=== PATIENT | female | born 1975 | race Caucasian/White ===

== ENCOUNTER 2019-08-17 08:26 | Outpatient (CLI) | payer OTHER ==
--- NOTE | 2019-08-17 14:06 | Mammography Report ---
Reason: SCREENING MAMMO Procedure Date: 08/17/2019 Accession Number: [id number] / [id number] Procedure: MGN - Screening Mammo Dig Bilat CPT Code: Final Report FULL RESULT: EXAM: Screening Mammo Dig Bilat DATE: 08/17/2019 8:56 AM CLINICAL HISTORY: Baseline screening. TECHNIQUE: (B) - Bilateral CC and MLO views were obtained. COMPARISON: None PARENCHYMAL PATTERN: (D) - The breasts demonstrate heterogeneously dense fibroglandular parenchyma bilaterally. FINDINGS: Right breast: There are no suspicious masses, calcifications, or areas of distortion. Left breast: Posterior upper outer quadrant slight asymmetric increased density; suggest spot compression and true lateral views with ultrasound if needed. Otherwise negative left breast. IMPRESSION: Incomplete examination. BI-RADS category 0. Left breast. Negative right breast. RECOMMENDATION: (ADDMU) - Additional views using both Mammography and Ultrasound recommended. BI-RADS CATEGORY: (0) - Incomplete Examination - need additional evaluation. STANDARD QUALIFYING STATEMENTS: 1. This examination was not reviewed with the aid of Computer-Aided Detection (CAD). 2. A negative or benign imaging report should not preclude biopsy if clinically suspicious findings are present. 3. Dense breasts may obscure an underlying neoplasm. 4. This examination was reviewed without the aid of 3D breast imaging (tomosynthesis).
== END 2019-08-17 08:27 | disposition home or self-care (01) ==
LOC: DI.N 08:26
PROVIDERS: ATTEND Family Medicine
DX: Z12.31 Encounter for screening mammogram for malignant neoplasm of breast (principal); R92.8 Other abnormal and inconclusive findings on diagnostic imaging of breast
CPT/HCPCS: 77067

== ENCOUNTER 2019-09-07 08:51 | Outpatient (CLI) | payer OTHER ==
--- NOTE | 2019-09-07 10:27 | Mammography Report ---
Reason: ABN MAMMO - SPEC VIEWS LT Procedure Date: 09/07/2019 Accession Number: [id number] / [id number] Procedure: LAURE - Diagnostic Dig LT CPT Code: Final Report FULL RESULT: EXAM: Diagnostic Dig LT DATE: 09/07/2019 9:52 AM CLINICAL HISTORY: Diagnostic mammogram. The patient is recalled from screening for a left breast upper outer quadrant asymmetry. TECHNIQUE: (L) - Left CC, ML, spot MLO and spot CC images are obtained. Focused left breast ultrasound is performed. COMPARISON: 08/17/2019. PARENCHYMAL PATTERN: (D) - The breast(s) demonstrate(s) heterogeneously dense fibroglandular parenchyma. FINDINGS: Spot views demonstrate a angular appearing nodule which measures up to 1 cm on spot views and appears gently lobulated on 3-D images, isodense and well marginated tomographically. Focused breast ultrasound of the left upper outer quadrant at 2:00 11 cm from the nipple demonstrates a hypoechoic angulated appearing septated cyst with increased through transmission, questionably slightly taller than wide with no definite solid soft tissue component, probably benign There are no suspicious masses, calcifications, or areas of distortion. IMPRESSION: Probably Benign. BI-RADS category 3. RECOMMENDATION: (6MOS) - Recommend 6 month follow-up exam. Left upper outer quadrant focused breast ultrasound for stability. BI-RADS CATEGORY: (3) - Probably Benign. STANDARD QUALIFYING STATEMENTS: 1. This examination was not reviewed with the aid of Computer-Aided Detection (CAD). 2. A negative or benign imaging report should not preclude biopsy if clinically suspicious findings are present. 3. Dense breasts may obscure an underlying neoplasm. 4. This examination was reviewed with the aid of 3D breast imaging (tomosynthesis).
== END 2019-09-07 08:52 | disposition home or self-care (01) ==
LOC: DI 08:51
PROVIDERS: ATTEND Family Medicine
DX: R92.8 Other abnormal and inconclusive findings on diagnostic imaging of breast (principal)
CPT/HCPCS: 76642

== ENCOUNTER 2020-05-08 11:48 | Outpatient (CLI) | payer OTHER ==
--- NOTE | 2020-05-12 13:24 | Ultrasound Report ---
LIMITED ULTRASOUND OF LEFT BREAST: 05/08/2020 CLINICAL: 6 month follow-up of cysts. No prior exams were available for comparison. Color flow and real-time ultrasound of the left breast were performed. Rodriges scale images of the vikram l-time examination were reviewed. Redemonstration of the 0.8 cm x 0.4 cm x 0.3 cm irregular cyst in the left breast at 2 o'clock pet sitting ior depth 11 cm from the nipple. This irregular cyst is hypoechoic with no posterior acoustic shadow ing or enhancement. It is parallel to skin surface in orientation. It is more cystic in apearance. Accounting for slight differences in imaging technique, this abnormality is not significantly changed . Color flow imaging demonstrates that there is no vascularity present. IMPRESSION: PROBABLY BENIGN The 0.8 cm x 0.4 cm x 0.3 cm irregular cyst in the left breast resembles a complicated cyst and is pr obably benign. A follow-up mammogram and an ultrasound in 6 months is recommended to demonstrate continued stability . Findings and recommendations were conveyed to the patient during today's visit. This exam was interpreted at Station ID: [id number]. Electronically Signed By: Chip Luu M.D. aty/:05/08/2020 13:15:52 Ultrasound BI-RADS: 3 Probably benign BI-RADS CATEGORY: (3) - 3 Mammo and [place] [id number] 6 month follow-up LATERALITY: (B)
== END 2020-05-08 11:49 | disposition home or self-care (01) ==
LOC: DI 11:48
PROVIDERS: ATTEND Family Medicine
DX: R92.8 Other abnormal and inconclusive findings on diagnostic imaging of breast (principal); N60.02 Solitary cyst of left breast
CPT/HCPCS: 76642

== ENCOUNTER 2020-05-08 11:53 | Outpatient (CLI) | payer OTHER ==
--- NOTE | 2020-05-08 16:32 | XRAY Report ---
Reason: LT SHOULDER PAIN Procedure Date: 05/08/2020 Accession Number: [id number] / [id number] Procedure: XR - Shoulder 3 View LT CPT Code: Final Report FULL RESULT: PROCEDURE: Shoulder 3 View LT INDICATIONS: LT SHOULDER PAIN TECHNIQUE: 3 views of the shoulder were acquired. COMPARISON: None. FINDINGS: Bones: No fractures or dislocations. 1.4 cm focus of sclerosis within the proximal humeral shaft. No associated osseous destruction. Moderate acromioclavicular degenerative narrowing is present. Mild high riding appearance of the humeral head is noted. Visualized ribs appear intact. Soft tissues: No suspicious soft tissue calcifications. IMPRESSION: 1. High riding humeral head which can be seen with rotator cuff pathology. 2. Focus of sclerosis within the humeral shaft as above. This could represent a prominent bone island. However, other etiologies cannot be excluded and is overall nonspecific. If this correlates to area of pain, MRI is recommended for further evaluation. Otherwise, bone scan or 3 month interval x-ray follow-up is recommended. Reviewed by: Lu Finnegan MD on 05/08/2020 4:31 PM PDT Approved by: Lu Finnegan MD on 05/08/2020 4:31 PM PDT Station ID: [id number]
== END 2020-05-08 11:54 | disposition home or self-care (01) ==
LOC: DI 11:53
PROVIDERS: ATTEND Physician Assistant
DX: M25.512 Pain in left shoulder (principal); N60.02 Solitary cyst of left breast; R92.8 Other abnormal and inconclusive findings on diagnostic imaging of breast
CPT/HCPCS: 76642

== ENCOUNTER 2020-12-09 08:18 | Outpatient (CLI) | payer OTHER ==
--- NOTE | 2020-12-09 13:56 | Mammography Report ---
BILATERAL DIGITAL DIAGNOSTIC MAMMOGRAM 3D/2D: 12/09/2020 CLINICAL: 6 month follow-up of cysts. Comparison is made to exams dated: 09/07/2019 ultrasound, 09/07/2019 mammogram, and 08/17/2019 mammog [facility]. The tissue of both breasts is heterogeneously dense. This may lo wer the sensitivity of mammography. No significant masses, calcifications, or other findings are seen in either breast. There has been no significant interval change. IMPRESSION: NEGATIVE There is no mammographic evidence of malignancy. A 1 year screening mammogram is recommended. This exam was interpreted at Station ID: [id number]. NOTE: For mammograms, a report in lay terms will be sent to the patient. Approximately 15% of breast malignancies will not be visualized mammographically. In the management of a palpable breast mass, a negative mammogram must not discourage biopsy of a clinically suspicious lesion. Electronically Signed By: Graeme Marinelli acr/penrad:12/09/2020 09:21:54 ACR BI-RADS Category 1: Negative 3341F PARENCHYMAL PATTERN: (D) - The breast(s) demonstrate(s) heterogeneously dense fibroglandular rosette ovalle. BI-RADS CATEGORY: (1) - 1 RECOMMENDATION: (ANNUAL) - Recommend routine annual screening mammography. [id number] 1 year screening LATERALITY: (B)
--- NOTE | 2020-12-09 13:56 | Ultrasound Report ---
LIMITED ULTRASOUND OF LEFT BREAST: 12/09/2020 CLINICAL: 6 month follow-up of cysts. Comparison is made to exams dated: 12/09/2020 mammogram, 05/08/2020 ultrasound, 09/07/2019 ultrasound, 09/07/2019 mammogram, and 08/17/2019 mammogram - [facility]. Color flow ultrasound of the left breast 11 o'clock region was performed. Rodriges scale images of the real-time examination were reviewed. There is a benign 0.8 cm x 0.4 cm x 0.3 cm irregular cyst in the left breast at 2 o'clock posterior d epth 11 cm from the nipple. This irregular cyst is hypoechoic with no posterior acoustic shadowing or enhancement. This abnormal ity is not significantly changed. Color flow imaging demonstrates that there is no vascularity prese nt. IMPRESSION: BENIGN There is no sonographic evidence of malignancy. The 0.8 cm x 0.4 cm x 0.3 cm irregular cyst in the left breast resembles a complicated cyst, is stabl e and is benign. Return to annual mammogram screening schedule is recommended. This exam was interpreted at Station ID: [id number]. Electronically Signed By: Graeme Marinelli acr/:12/09/2020 09:34:11 Ultrasound BI-RADS: 2 Benign BI-RADS CATEGORY: (2) - 2 RECOMMENDATION: (ANNUAL) - Recommend routine annual screening mammography. [id number] return to screening LATERALITY: (B)
== END 2020-12-09 08:19 | disposition home or self-care (01) ==
LOC: DI 08:18
PROVIDERS: ATTEND Physician Assistant
DX: R92.2 Inconclusive mammogram (principal); N60.02 Solitary cyst of left breast

== ENCOUNTER 2021-08-04 16:03 | Outpatient (CLI) | payer BC ==
--- NOTE | 2021-08-05 08:21 | XRAY Report ---
PROCEDURE: Elbow 3 View RT INDICATIONS: FOOSH INJURY, R ELBOW TECHNIQUE: 3 views of the elbow were acquired. COMPARISON: None. FINDINGS: BONES/JOINTS: No acute, displaced fracture or dislocation. No appreciable joint effusion. Trace olecr anon enthesophyte. Prominent medial epicondyle enthesophyte. SOFT TISSUES: No focal abnormality. IMPRESSION: 1.No acute osseous abnormality of the elbow. Reviewed by: Juan Cortez MD on 08/05/2021 8:19 AM PDT Approved by: Juan Cortez MD on 08/05/2021 8:19 AM PDT Station ID: [id number]
== END 2021-08-04 16:04 | disposition home or self-care (01) ==
LOC: DI.N 16:03
PROVIDERS: ATTEND Physician Assistant
DX: M25.521 Pain in right elbow (principal)

== ENCOUNTER 2023-07-06 08:15 | Outpatient (CLI) | payer OTHER ==
--- NOTE | 2023-07-07 12:32 | Mammography Report ---
BILATERAL DIGITAL SCREENING MAMMOGRAM 3D/2D: 07/06/2023 CLINICAL: Routine screening. Comparison is made to exams dated: 12/09/2020 ultrasound, 12/09/2020 mammogram, 05/08/2020 ultrasound, 09/07/2019 ultrasound, 09/07/2019 mammogram, and 08/17/2019 mammogram - [facility]. Both breasts are heterogeneously dense, which may obscure small masses (category c / 51-75% glandular tissue). There is an asymmetry in the right breast middle depth superior region seen on the mediolateral obliq ue view only. This is more prominent. No other significant masses, calcifications, or other findings are seen in either breast. IMPRESSION: INCOMPLETE: NEEDS ADDITIONAL IMAGING EVALUATION The asymmetry in the right breast is indeterminate. Additional views with possible ultrasound are re commended. Based on the Tyrer Cuzick model (a risk assessment model) the patients lifetime risk is 10.4% and he r 10 year risk is 1.9%. According to the ACR, ACS, and NCCN guidelines, an annual breast MRI exam vivek ng with mammogram is recommended if the patients lifetime risk is 20% or greater. This exam was interpreted at Station ID: [id number]. NOTE: For mammograms, a report in lay terms will be sent to the patient. Approximately 15% of breast malignancies will not be visualized mammographically. In the management of a palpable breast mass, a negative mammogram must not discourage biopsy of a clinically suspicious lesion. Electronically Signed By: Ghanshyam Chew M.D. lc/:07/06/2023 16:08:57 ACR BI-RADS Category 0: Incomplete 3340F PARENCHYMAL PATTERN: (D) - The breast(s) demonstrate(s) heterogeneously dense fibroglandular parenchy ma. BI-RADS CATEGORY: (0) - 0 Mammo and US [id number] Immediate follow-up LATERALITY: (B)
== END 2023-07-06 08:16 | disposition home or self-care (01) ==
LOC: DI.N 08:15
PROVIDERS: ATTEND Physician Assistant
DX: Z12.31 Encounter for screening mammogram for malignant neoplasm of breast (principal); R92.8 Other abnormal and inconclusive findings on diagnostic imaging of breast

== ENCOUNTER 2023-07-27 08:08 | Outpatient (CLI) | payer OTHER ==
--- NOTE | 2023-07-27 11:58 | Ultrasound Report ---
LIMITED ULTRASOUND OF RIGHT BREAST: 07/27/2023 CLINICAL: Patient returns today to evaluate a focal asymmetry in the right breast. Comparison is made to exams dated: 07/27/2023 mammogram, 07/06/2023 mammogram, 12/09/2020 mammogram, 11/07/2018 mammogram, and 08/17/2019 mammogram - Located within [facility]. Color flow and real-time ultrasound of the right breast 10-11 o'clock region were performed. Rodriges sc karen images of the real-time examination were reviewed. No significant abnormalities were seen sonographically in the right breast in the region of the possi ble asymmetry. IMPRESSION: NEGATIVE There is no sonographic evidence of malignancy. A 1 year screening mammogram is recommended. Exam findings were conveyed to the patient. This exam was interpreted at Station ID: [id number]. Electronically Signed By: Everardo Hewitt M.D. slc/:07/27/2023 09:37:53 Ultrasound BI-RADS: 1 Negative BI-RADS CATEGORY: (1) - 1 Mammogram [id number] 1 year screening LATERALITY: (B)
--- NOTE | 2023-07-27 11:58 | Mammography Report ---
UNILATERAL RIGHT DIGITAL DIAGNOSTIC MAMMOGRAM 3D/2D WITH SPOT COMPRESSION: 07/27/2023 CLINICAL: Patient returns today to evaluate an asymmetry in the right breast. Comparison is made to exams dated: 12/09/2020 mammogram, 09/07/2019 mammogram, and 07/06/2023 mammogra m - [facility]. The right breast is heterogeneously dense, which may obscure small masses (category c / 51-75% glandu lar tissue). There is an 0.4 cm asymmetry in the right breast middle depth superior region seen on the prior medio lateral oblique view only. This is not seen in additional diagnostic views. No other significant masses or calcifications are seen in the breast. IMPRESSION: INCOMPLETE: NEEDS ADDITIONAL IMAGING EVALUATION Possible asymmetry in the right breast is not confirmed. A second look ultrasound is recommended and will immediately follow. Based on the Tyrer Cuzick model (a risk assessment model) the patients lifetime risk is 10.4% and he r 10 year risk is 1.9%. According to the ACR, ACS, and NCCN guidelines, an annual breast MRI exam vivek ng with mammogram is recommended if the patients lifetime risk is 20% or greater. This exam was interpreted at Station ID: [id number]. NOTE: For mammograms, a report in lay terms will be sent to the patient. Approximately 15% of breast malignancies will not be visualized mammographically. In the management of a palpable breast mass, a negative mammogram must not discourage biopsy of a clinically suspicious lesion. Electronically Signed By: Everardo Hewitt M.D. slc/:07/27/2023 09:34:32 ACR BI-RADS Category 0: Incomplete 3340F PARENCHYMAL PATTERN: (D) - The breast(s) demonstrate(s) heterogeneously dense fibroglandular parulysses ovalle. BI-RADS CATEGORY: (0) - 0 Ultrasound [id number] Immediate follow-up LATERALITY: (B)
== END 2023-07-27 08:09 | disposition home or self-care (01) ==
LOC: DI 08:08
PROVIDERS: ATTEND Physician Assistant
DX: R92.8 Other abnormal and inconclusive findings on diagnostic imaging of breast (principal); R92.331 Mammographic heterogeneous density, right breast